=== PATIENT | male | born 1990 | race Caucasian/White ===

== ENCOUNTER 2018-07-12 13:23 | Emergency (ER) | payer BC ==
[~2018-07-12] VITALS: Ht 177.8 cm; Wt 108.9 kg
[~2018-07-12 13:23] MED LIST: BACTRIM DS 8001 TA1 PO; BENADRYL25 MG PO; HYDRODIURIL25 MG PO; IBU-8800 MG PO; Motrin,Rufen800 MG PO; NKHM; PENICILLIN VK500 MG PO; PREDNICOT20 MG PO; TRAMADOL HCL50 MG PO; VICODIN 500 MG-1 TAB PO
[2018-07-12 14:01] LABS: BASO % 0.3 % (0.0-1.0); EOS % 0.5 % (1.0-4.0); HEMOGLOBIN 14.1 g/dl (14.0-18.0); LYMPH # 0.4 10*3/uL (1.3-4.4); LYMPH % 6.7 % (27.0-41.0); MEAN CELL VOLUME 88.3 fl (80.0-94.0); MEAN CORPUSCULAR HGB 31.1 pg (27.0-31.0); MEAN CORPUSCULAR HGB CONC 35.3 g/dl (33.0-37.0); MEAN PLATELET VOLUME 10.4 fl (9.6-12.3); MONO # 0.5 10*3/uL (0.1-1.0); MONO % 8.9 % (3.0-9.0); NEUT % 83.3 % (47.0-73.0); PLATELET COUNT AUTOMATED 95 10*3/uL (130-400); RED BLOOD COUNT 4.53 10*6/uL (4.50-5.90); RED CELL DISTRI WIDTH 12.1 % (0-14.5)
[2018-07-12 14:15] LABS: ALBUMIN 4.3 gm/dl (3.1-4.5); ALKALINE PHOSPHATASE 59 U/L (45-117); BUN 7 mg/dl (7-24); CHLORIDE 103 mmol/L (98-107); CREATININE 1.04 mg/dL (0.70-1.30); POTASSIUM 3.6 mmol/L (3.5-5.1); SGOT/AST 28 IU/L (3-35); SGPT/ALT 48 U/L (12-78); SODIUM 138 mmol/L (136-145); TOTAL PROTEIN 7.3 gm/dL (6.4-8.2)
[2018-07-12] MEDS ORDERED: TAMIFLU 75MG CA75 MG PO (14:50)
[2018-07-12 15:05] VITALS: BP 114/64
== END 2018-07-12 15:09 | disposition home or self-care (01) ==
LOC: ED 13:23
PROVIDERS: Physician Assistant
DX: J10.1 Influenza due to other identified influenza virus with other respiratory manifestations (principal)

== ENCOUNTER → 2020-05-06 | Outpatient (CLI) | payer BC ==
[~2020-05-06] MED LIST changes: +TAMIFLU 75MG CA75 MG PO
== END | disposition home or self-care (01) ==
LOC: COVID19 12:14
PROVIDERS: ATTEND Internal Medicine
DX: Z20.828 Contact with and (suspected) exposure to other viral communicable diseases (principal)

== ENCOUNTER → 2020-08-21 | Outpatient (CLI) | payer SELFPAY | END | disposition home or self-care (01) | LOC: COVID19 10:14 | PROVIDERS: ATTEND Nurse Practitioner Adult Health | DX: R11.10 Vomiting, unspecified (principal); Z20.822 Contact with and (suspected) exposure to COVID-19 ==

== ENCOUNTER → 2021-02-13 | Outpatient (CLI) | payer BC | END | disposition home or self-care (01) | LOC: COVID19 15:13 | PROVIDERS: ATTEND Family Medicine | DX: Z11.52 Encounter for screening for COVID-19 (principal) ==

== ENCOUNTER → 2021-05-24 | Outpatient (CLI) | payer BC | END | disposition home or self-care (01) | LOC: COVID19 15:09 | PROVIDERS: ATTEND Internal Medicine | DX: U07.1 COVID-19 (principal) ==

== ENCOUNTER 2021-11-18 12:38 | Emergency (ER) | payer OTHER ==
[~2021-11-18] VITALS: Ht 177.8 cm; Wt 106.1 kg
[2021-11-18 12:49] VITALS: BP 141/85
[2021-11-18] MEDS ORDERED: CETIRIZINE10 MG PO (14:32)
== END 2021-11-18 15:37 | disposition home or self-care (01) ==
LOC: ED 12:38
DX: B34.9 Viral infection, unspecified (principal); Z20.822 Contact with and (suspected) exposure to COVID-19

== ENCOUNTER 2022-02-07 21:42 | Emergency (ER) | payer OTHER ==
[~2022-02-07] VITALS: Ht 180.3 cm; Wt 108.9 kg
[~2022-02-07 21:42] MED LIST changes: +CETIRIZINE10 MG PO
[2022-02-07 22:25] LABS: BASO % 0.1 % (0.0-1.0); EOS # 0.1 10*3/uL (0.0-0.4); EOS % 0.9 % (1.0-4.0); HEMATOCRIT 42.4 % (42.0-52.0); LYMPH # 0.5 10*3/uL (1.3-4.4); LYMPH % 7.2 % (27.0-41.0); MEAN CELL VOLUME 90.2 fl (80.0-94.0); MEAN CORPUSCULAR HGB 31.3 pg (27.0-31.0); MEAN CORPUSCULAR HGB CONC 34.7 g/dl (33.0-37.0); MEAN PLATELET VOLUME 9.3 fl (9.6-12.3); MONO # 0.3 10*3/uL (0.1-1.0); MONO % 4.5 % (3.0-9.0); NEUT # 5.8 10*3/uL (2.3-7.9); NEUT % 87.2 % (47.0-73.0); PLATELET COUNT AUTOMATED 223 10*3/uL (130-400); RED CELL DISTRI WIDTH 12.1 % (0-14.5); WHITE BLOOD COUNT 6.7 10*3/uL (4.8-10.8)
[2022-02-07 22:42] LABS: ALKALINE PHOSPHATASE 68 U/L (45-117); BUN 11 mg/dl (7-24); CHLORIDE 112 mmol/L (98-107); CREATININE 0.97 mg/dL (0.70-1.30); POTASSIUM 3.8 mmol/L (3.5-5.1); SGOT/AST 41 IU/L (3-35); SGPT/ALT 70 U/L (12-78); SODIUM 142 mmol/L (136-145)
[2022-02-07 22:49] LABS: BILIRUBIN Negative (Negative); BLOOD Negative (Negative); CLARITY Clear (Clear); COLOR Yellow (Yellow); GLUCOSE Negative (Negative); KETONE Trace (Negative); LEUKO ESTERASE Trace (Negative); NITRITE Negative (Negative); PH 6.5 (4.5-8.0); SPECIFIC GRAVITY >= 1.030 (1.001-1.030)
[2022-02-07 22:59] LABS: BACTERIA TRACE
[2022-02-07 23:08] VITALS: BP 134/86
[2022-02-08] MEDS ORDERED: METHOCARBAMOL750 M1 PO (00:20)
[2022-02-08] MEDS ORDERED: NAPROXEN250 MG PO (00:20)
== END 2022-02-08 00:23 | disposition home or self-care (01) ==
LOC: ED 21:42
PROVIDERS: Nurse Practitioner Family
DX: S29.012A Strain of muscle and tendon of back wall of thorax, initial encounter (principal); X58.XXXA Exposure to other specified factors, initial encounter; Y93.89 Activity, other specified; Y92.89 Other specified places as the place of occurrence of the external cause; Y99.8 Other external cause status

== ENCOUNTER 2022-04-10 04:09 | Emergency (ER) | payer OTHER ==
[~2022-04-10] VITALS: Ht 177.8 cm; Wt 108.9 kg
[~2022-04-10 04:09] MED LIST changes: +METHOCARBAMOL750 M1 PO; +NAPROXEN250 MG PO
[2022-04-10 04:18] VITALS: BP 148/97
== END 2022-04-10 06:30 | disposition home or self-care (01) ==
LOC: ED 04:09
DX: R51.9 Headache, unspecified (principal)

== ENCOUNTER 2022-08-20 00:52 | Emergency (ER) | payer OTHER ==
[~2022-08-20] VITALS: Ht 177.8 cm; Wt 108.9 kg
[2022-08-20 01:08] VITALS: BP 151/85
[2022-08-20] MEDS ORDERED: AMOXICILLIN500 M2 PO (02:42)
== END 2022-08-20 02:44 | disposition home or self-care (01) ==
LOC: ED 00:52
DX: H66.92 Otitis media, unspecified, left ear (principal)

== ENCOUNTER 2022-10-22 08:52 | Emergency (ER) | payer OTHER ==
[~2022-10-22] VITALS: Wt 108.9 kg
[~2022-10-22 08:52] MED LIST changes: +AMOXICILLIN500 M2 PO
[2022-10-22 09:06] VITALS: BP 149/88
[2022-10-22] MEDS ORDERED: CLEOCIN HCL150 MG PO (09:23)
[2022-10-22] MEDS ORDERED: Motrin,Rufen800 MG PO (09:23)
== END 2022-10-22 10:13 | disposition home or self-care (01) ==
LOC: ED 08:52
DX: K08.89 Other specified disorders of teeth and supporting structures (principal); Z98.890 Other specified postprocedural states

== ENCOUNTER 2025-02-24 02:54 | Emergency (ER) | payer OTHER ==
[~2025-02-24] VITALS: Ht 177.8 cm; Wt 113.4 kg
[~2025-02-24 02:54] MED LIST changes: +CLEOCIN HCL150 MG PO
[2025-02-24 03:00] VITALS: BP 166/92
[2025-02-24] MEDS ORDERED: CIPROFLOXACIN H10 ML OPH (03:12)
== END 2025-02-24 03:16 | disposition home or self-care (01) ==
LOC: ED 02:54
DX: H10.9 Unspecified conjunctivitis (principal)